=== PATIENT | male | born 2000 | race Caucasian/White ===

== ENCOUNTER 2024-07-13 06:03 | Day surgery (SDC) | payer OTHER ==
[~2024-07-13] VITALS: Ht 177.8 cm; Wt 89.7 kg
[~2024-07-13 06:03] MED LIST: GNPTAB36 PO; IBUP-1022 PO; TRANEXAMIC ACID 100 MG/ML 10ML VIAL IV ONE
[2024-07-13] MEDS ORDERED: propofoL 200 MG/20 ML VIAL As Ordered ONE (06:22)
[2024-07-13] MEDS ORDERED: ROCURONIUM BROMIDE 50MG/5ML VIAL As Ordered ONE (06:22)
[2024-07-13] MEDS ORDERED: LIDOCAINE 2% 100MG/5ML SDV (FOR ANES.) As Ordered ONE (06:22)
[2024-07-13] MEDS ORDERED: KETOROLAC 60MG 2ML VIAL As Ordered ONE (06:23)
[2024-07-13] MEDS ORDERED: SUGAMMADEX SODIUM 500 MG/5 ML VIAL (BRIDION) As Ordered ONE (06:23)
[2024-07-13] MEDS ORDERED: ONDANSETRON 4MG 2ML VIAL As Ordered ONE (06:23)
[2024-07-13] MEDS ORDERED: GLYCOPYRROLATE INJ 0.2 MG/ML 2 ML VIAL As Ordered ONE (06:23)
[2024-07-13] MEDS ORDERED: fentaNYL 100 MCG/2 ML INJECTION As Ordered ONE (06:27)
[2024-07-13] MEDS ORDERED: MIDAZOLAM INJ 2MG/2ML VIAL As Ordered ONE (06:27)
[2024-07-13] MEDS: LR 1,000 ML IV SCH (07:06)
[2024-07-13] MEDS: fentaNYL 100 MCG/2 ML INJECTION IV PRN (07:36)
[2024-07-13] MEDS: MIDAZOLAM INJ 2MG/2ML VIAL IV PRN (07:36)
[2024-07-13] MEDS: EPINEPHrine INJ 1 MG/ML 1ML AMP PN ONE ×2 (07:37→07:38)
[2024-07-13] MEDS: ROPIvacaine 0.5% 30ML VIAL PN ONE ×2 (07:37→07:38)
[2024-07-13] MEDS: dexAMETHasone 10MG/1ML VIAL PRES.FREE PN ONE ×2 (07:37→07:38)
[2024-07-13] MEDS: LIDOCAINE 1% SDV 5ML VIAL PN ONE (07:38)
[2024-07-13] MEDS: TRANEXAMIC ACID 100 MG/ML 10ML VIAL As Ordered ONE (08:00)
[2024-07-13] MEDS: ceFAZolin SOD 2 GM in IV 1 EA IV ONE (08:00)
[2024-07-13] MEDS ORDERED: ACETAMINOPHEN 1000MG/100ML IV BAG As Ordered ONE (08:15)
[2024-07-13] MEDS ORDERED: KETAMINE HCL 200MG/20ML VIAL As Ordered ONE (08:42)
[2024-07-13] MEDS ORDERED: HYDROmorphone HCL 2MG/ML 1ML VIAL As Ordered ONE (08:51)
[2024-07-13] MEDS: EPINEPHrine INJ 1 MG/ML 1ML AMP As Ordered ONE (11:20)
[2024-07-13] MEDS: ceFAZolin 2 GM/D5W 50 ML IV BAG As Ordered ONE (12:00)
[2024-07-13] MEDS: VANCOMYCIN 1000MG/20ML VIAL As Ordered ONE (12:53)
[2024-07-13] MEDS ORDERED: METOCLOPRAMIDE INJ 10MG/2ML VIAL As Ordered ONE (12:56)
[2024-07-13] MEDS ORDERED: oxyCODONE 5MG TAB PO PRN (13:05)
[2024-07-13] MEDS ORDERED: fentaNYL 100 MCG/2 ML INJECTION IV PRN (13:05)
[2024-07-13] MEDS ORDERED: ONDANSETRON 4MG 2ML VIAL IV PRN (13:05)
[2024-07-13 15:07] VITALS: BP 135/75; TEMP 97.9; O2SAT 100
== END 2024-07-13 15:24 | disposition home or self-care (01) ==
LOC: M SDC 06:03
PROVIDERS: ATTEND Orthopaedic Surgery
DX: M23.52 Chronic instability of knee, left knee (principal); M23.8X2 Other internal derangements of left knee
CPT/HCPCS: 29999; 73560; 76000; C1713; C1762; J0131; J0171; J0665; J0690; J1100; J1171; J1596; J1885; J2250; J2405; J2765; J3010; J3370